=== PATIENT | female | born 1945 | race Caucasian/White ===

== ENCOUNTER → 2017-08-27 | Outpatient (CLI) | payer OTHER ==
[~2017-08-27] MED LIST: ALPRAZOLAM 0.50.5 M1 PO; ASPIRIN EC81 M1 PO; ATORVASTATIN CA20 MG PO; CALTRATE PLUS1 EACH; LEVOXYL75 MCG PO; METHYLPHENIDATE20 M4 PO; NAPROSYN500 MG; OSTEO BI-FLEX1 EAC1; PRILOSEC 20 MG20 MG PO; TOPROL XL50 MG PO
== END ==
LOC: RAD 07:24
DX: Z12.31 Encounter for screening mammogram for malignant neoplasm of breast (principal)

== ENCOUNTER → 2018-08-27 | Outpatient (CLI) | payer OTHER ==
[~2018-08-27] MED LIST changes: +ADDERALL 30 MG30 MG PO; +HYDROXYZINE HCL10 M2 PO; +MEDROLDOSEPACK PO
== END ==
LOC: RAD 02:04
DX: Z12.31 Encounter for screening mammogram for malignant neoplasm of breast (principal)

== ENCOUNTER → 2020-06-28 | Outpatient (CLI) | payer OTHER | LOC: BC 13:09 | PROVIDERS: ATTEND Family Medicine | DX: Z12.31 Encounter for screening mammogram for malignant neoplasm of breast (principal); M81.0 Age-related osteoporosis without current pathological fracture ==

== ENCOUNTER → 2021-06-29 | Outpatient (CLI) | payer OTHER | LOC: BC 10:42 | PROVIDERS: ATTEND Family Medicine | DX: Z12.31 Encounter for screening mammogram for malignant neoplasm of breast (principal) ==